=== PATIENT | female | born 2000 | race Caucasian/White ===

== ENCOUNTER 2023-05-18 11:26 | Emergency (ER) | payer OTHER ==
[~2023-05-18] VITALS: Ht 165.1 cm; Wt 57.2 kg
[2023-05-18 12:30] LABS: BASO % 0.4 % (0.0-1.0); EOS # 0.1 10^3/uL (0.0-0.5); EOS % 2.4 % (0.0-3.0); HEMATOCRIT 40.8 % (36.0-47.0); HEMOGLOBIN 14.1 g/dl (12.0-15.5); LYMPH # 1.8 10^3/uL (1.5-5.0); LYMPH % 33.3 % (24.0-44.0); MEAN CORPUSCULAR HEMOGLOBIN 31.3 pg (27.0-33.0); MEAN CORPUSCULAR HGB CONC 34.6 g/dl (32.0-36.5); MEAN CORPUSCULAR VOLUME 90.7 fl (80.0-96.0); MONO # 0.4 10^3/uL (0.0-0.8); MONO % 6.6 % (2.0-8.0); NEUTROPHILS % 57.1 % (36.0-66.0); PLATELET COUNT, AUTOMATED 174 10^3/uL (150-450); WHITE BLOOD COUNT 5.3 10^3/uL (4.0-10.0)
[2023-05-18] MEDS: NS 1,000 ML IV ONE (12:50)
[2023-05-18 13:03] LABS: BLOOD UREA NITROGEN 11 MG/DL (9-23); CARBON DIOXIDE LEVEL 25 MMOL/L (20-31); CHLORIDE LEVEL 104 MMOL/L (98-107); CREATININE FOR GFR 0.62 MG/DL (0.55-1.30); GLOMERULAR FILTRATION RATE > 60.0 (>60); GLUCOSE, FASTING 92 MG/DL (60-100); POTASSIUM SERUM 4.2 MMOL/L (3.5-5.1); SODIUM LEVEL 136 MMOL/L (136-145)
[2023-05-18 13:19] LABS: HCG, SERUM QUANTITATIVE 31025.6 MIU/ML (<4.2)
[2023-05-18] MEDS ORDERED: HOME MED LIST COMPLETE! XX SCH (15:25)
[2023-05-18] MEDS ORDERED: MULTTAB20 PO (15:25)
[2023-05-18] MEDS ORDERED: MACR100C43 PO (15:51)
[2023-05-18] MEDS: NITROFURANTOIN (MACROBID) 100 MG CAP PO ONE (15:59)
[2023-05-18 16:05] VITALS: BP 130/64; TEMP 98.5; O2SAT 98
== END 2023-05-18 16:06 | disposition home or self-care (01) ==
LOC: M ED 11:26
DX: O26.851 Spotting complicating pregnancy, first trimester (principal); O23.40 Unspecified infection of urinary tract in pregnancy, unspecified trimester; Z3A.01 Less than 8 weeks gestation of pregnancy; Z79.810 Long term (current) use of selective estrogen receptor modulators (SERMs); Z79.899 Other long term (current) drug therapy

== ENCOUNTER → 2025-03-11 | Outpatient (CLI) | payer OTHER ==
[~2025-03-11] MED LIST: MACR100C43 PO; MULTTAB20 PO
[2025-03-11 12:01] LABS: PLATELET COUNT, AUTOMATED 160 10^3/uL (150-450)
[2025-03-11 13:00] LABS: Trichomonas vaginalis (AMP) NOT DETECTED (NEGATIVE)
[2025-03-11 13:02] LABS: HIV 1&2 SCREEN NEGATIVE (NEGATIVE)
[2025-03-11 13:11] LABS: HEPATITIS C VIRUS ABY INDEX 0.04 INDEX (<0.8)
[2025-03-11 13:24] LABS: GC DNA AMPLIFICATION NEGATIVE (NEGATIVE)
== END ==
LOC: M PLALAB 09:12
PROVIDERS: ATTEND Nurse Practitioner Family
DX: Z34.80 Encounter for supervision of other normal pregnancy, unspecified trimester (principal)

== ENCOUNTER → 2025-03-11 | Outpatient (REF) | payer OTHER | LOC: M PLALAB 08:48 | PROVIDERS: ATTEND Nurse Practitioner Family | DX: Z34.80 Encounter for supervision of other normal pregnancy, unspecified trimester (principal) ==